=== PATIENT | female | born 1985 | race Caucasian/White ===

== ENCOUNTER 2023-01-21 09:08 | Emergency (ER) | payer OTHER ==
[~2023-01-21] VITALS: Ht 157.5 cm; Wt 54.9 kg
[2023-01-21 09:17] VITALS: BP 122/88
== END 2023-01-21 09:45 | disposition home or self-care (01) ==
LOC: ER 09:08
DX: M54.42 Lumbago with sciatica, left side (principal); Z88.8 Allergy status to other drugs, medicaments and biological substances
CPT/HCPCS: 99283